=== PATIENT | male | born 1995 | race Caucasian/White ===

== ENCOUNTER 2017-11-16 17:45 | Emergency (ER) | payer SELFPAY ==
[~2017-11-16] VITALS: Ht 190.5 cm; Wt 136.4 kg
[2017-11-16] MEDS ORDERED: PROPARACAINE HCL 0.5% 15 ML OPHTHALMIC SOLUTION OD ONE (19:30)
[2017-11-16] MEDS ORDERED: TOBRAMYCIN/DEXAMETHASONE 5 ML OPHTHALMIC SUSPENSION OD ONE (20:15)
[2017-11-16 20:44] VITALS: BP 134/81
== END 2017-11-16 20:50 | disposition home or self-care (01) ==
LOC: EMS 17:47
DX: T15.91XA Foreign body on external eye, part unspecified, right eye, initial encounter (principal); R03.0 Elevated blood-pressure reading, without diagnosis of hypertension; X58.XXXA Exposure to other specified factors, initial encounter; Y93.89 Activity, other specified; Y92.89 Other specified places as the place of occurrence of the external cause; Y99.8 Other external cause status
CPT/HCPCS: 99283